=== PATIENT | male | born 1985 | race Caucasian/White ===

== ENCOUNTER 2016-07-16 09:50 | Emergency (ER) | payer OTHER | END 2016-07-16 10:55 | disposition home or self-care (01) | LOC: FER 09:50 | DX: S46.911A Strain of unspecified muscle, fascia and tendon at shoulder and upper arm level, right arm, initial encounter (principal); Z23 Encounter for immunization; Z88.2 Allergy status to sulfonamides; W01.0XXA Fall on same level from slipping, tripping and stumbling without subsequent striking against object, initial encounter; Y93.02 Activity, running; Y92.481 Parking lot as the place of occurrence of the external cause | CPT/HCPCS: 73030; 90471; 90715; J1885 ==